=== PATIENT | male | born 1945 | race Caucasian/White ===

== ENCOUNTER 2017-01-29 10:12 | Outpatient (CLI) | payer OTHER, MEDICARE | END 2017-01-29 20:59 | disposition home or self-care (01) | LOC: SCT 10:12 | PROVIDERS: ATTEND Otolaryngology | DX: J32.9 Chronic sinusitis, unspecified (principal); J31.0 Chronic rhinitis; J34.2 Deviated nasal septum | CPT/HCPCS: 70486-TC ==